=== PATIENT | female | born 2000 ===

== ENCOUNTER → 2020-12-23 | Outpatient (CLI) | payer OTHER ==
--- NOTE | 2020-12-23 16:22 | CARD ---
MR#: [id number] Date of Study: 12/23/2020 Ordering Physician: JACK WILSON, Referring Physician: JACK WILSON Tech: Angelica Vigil [facility] APPROVED REPORT EXAM: Two-dimensional and M-mode echocardiogram with Doppler and color Doppler. Other Information Quality : AverageHR: 63bpm Rhythm : NSR INDICATION 2D DIMENSIONS RVDd3.1 (2.9-3.5cm)Left Atrium(2D)4.0 (1.6-4.0cm) IVSd0.9 (0.7-1.1cm)Aortic Root(2D)2.9 (2.0-3.7cm) LVDd5.2 (3.9-5.9cm)LVOT Diameter2.2 (1.8-2.4cm) PWd1.0 (0.7-1.1cm)LVDs3.4 (2.5-4.0cm) FS (%) 33.5 %SV78.6 ml Aortic Valve AoV Peak Kailash.135.0cm/sAoV VTI34.6cm AO Peak GR.7.3mmHgLVOT Peak Kailash.94.7cm/s AO Mean GR.3mmHgAVA (VMAX)2.64cm2 Mitral Valve MV E Tgdldvqc796.9cm/sMV DECEL SJMY556pr MV A Kttrsxmj55.3cm/sE/A Ratio2.1 Pulmonary Valve PV Peak Mzyacyxd531.3cm/s Tricuspid Valve TR P. Mjkbdelf515tk/sTR Peak Gr.26mmHg Pulmonary Vein S1 Zodmvvvl23.8cm/sD2 Fmsnnqhd39.1cm/s PVa wmctddkz380ggri LEFT VENTRICLE The left ventricle is normal size. There is normal left ventricular wall thickness. The left ventricu lar systolic function is normal and the ejection fraction is within normal range. Ejection fraction o f 55-60%. There is normal LV segmental wall motion. The left ventricular diastolic function and filli ng is normal for age. RIGHT VENTRICLE The right ventricle is normal size. There is normal right ventricular wall thickness. The right ventr icular systolic function is normal. ATRIA The left atrium size is normal. The right atrium size is normal. The interatrial septum is intact wit h no evidence for an atrial septal defect or patent foramen ovale as noted on 2-D or Doppler imaging. AORTIC VALVE The aortic valve is normal in structure and function. Doppler and Color Flow revealed no significant aortic regurgitation. There is no significant aortic valvular stenosis. MITRAL VALVE The mitral valve is normal in structure and function. There is no evidence of mitral valve prolapse. There is no mitral valve stenosis. Doppler and Color Flow revealed no mitral valve regurgitation note d. TRICUSPID VALVE The tricuspid valve is normal in structure and function. Doppler and Color Flow revealed trace tricus pid regurgitation. Estimated PAP 18 mmHg. There is no tricuspid valve stenosis. PULMONIC VALVE The pulmonary valve is normal in structure and function. GREAT VESSELS The aortic root is normal in size. The ascending aorta is normal in size. The IVC is normal in size a nd collapses >50% with inspiration. PERICARDIAL EFFUSION There is no evidence of significant pericardial effusion. Critical Notification Critical Value: No <Conclusion> The left ventricle is normal size. The left ventricular systolic function is normal and the ejection fraction is within normal range. Ejection fraction of 55-60%. Doppler and Color Flow revealed no significant aortic regurgitation. There is no significant aortic valvular stenosis. Doppler and Color Flow revealed no mitral valve regurgitation noted. Doppler and Color Flow revealed trace tricuspid regurgitation. Estimated PAP 18 mmHg. Signed by : Tee Serrano MD Electronically Approved : 12/23/2020 16:21:25
== END ==
LOC: ECHO 12:09
PROVIDERS: ATTEND Internal Medicine Cardiovascular Disease
DX: R60.0 Localized edema (principal)
CPT/HCPCS: 93306